=== PATIENT | male | born 1960 | race Two or more races ===

== ENCOUNTER 2017-11-25 13:09 | Emergency (ER) | payer OTHER ==
[~2017-11-25] VITALS: Ht 167.6 cm; Wt 81.6 kg
--- NOTE | 2017-11-25 13:22 | NUR ---
[facility] FAMILY FOR RT SHOULDER PAIN S/P FALL 1 MONTH AGO, AND THEN RE-INJURED IT 2 WEEKS AGO. STS PAIN IS WORSE W/ ACTIVITIES. NAD VSS RR EVEN AND UNLABORED. WILL CONT TO MONITO
[2017-11-25] MEDS ORDERED: HYDROCODONE/APAP 10/325MG 1 EA TABLET ONE (13:27)
[2017-11-25] MEDS ORDERED: IBUPROFEN 600 MG TABLET PO ONE ×2 (13:27→13:30)
[2017-11-25] MEDS ORDERED: HYDROCODONE/APAP 10/325MG 1 EA TABLET PO ONE (13:30)
--- NOTE | 2017-11-25 14:39 | NUR ---
Patient discharged to home in stable condition. Written and verbal after care instructions given. Patient verbalizes understanding of instruction.
[2017-11-25 14:40] VITALS: BP 122/64
== END 2017-11-25 14:42 | disposition home or self-care (01) ==
LOC: EDBD 13:13 → ER 13:13
DX: S49.81XA Other specified injuries of right shoulder and upper arm, initial encounter (principal); I10 Essential (primary) hypertension; E11.9 Type 2 diabetes mellitus without complications; W18.30XA Fall on same level, unspecified, initial encounter; Y93.89 Activity, other specified; Y92.89 Other specified places as the place of occurrence of the external cause; Y99.8 Other external cause status
CPT/HCPCS: 29105; 73030; 99284; A4606; Z7610